=== PATIENT | male | born 1960 | race African-American/Black ===

== ENCOUNTER 2016-11-12 15:27 | Emergency (ER) | payer SELFPAY ==
[~2016-11-12] VITALS: Ht 182.9 cm; Wt 75.0 kg
[2016-11-12 16:30] VITALS: BP 108/67
== END 2016-11-12 19:40 | disposition left against medical advice (07) ==
LOC: ER 15:27
DX: Z53.21 Procedure and treatment not carried out due to patient leaving prior to being seen by health care provider (principal)